=== PATIENT | female | born 1965 | race Caucasian/White ===

== ENCOUNTER 2016-05-18 14:30 | Emergency (ER) | payer BC ==
[~2016-05-18] VITALS: Ht 160 cm; Wt 75.0 kg
[2016-05-18 14:31] VITALS: BP 139/83; PULSE 88; RESP 18; TEMP 98.1; O2SAT 100
[2016-05-18] MEDS ORDERED: SODIUM CHLOR 0.9% 1000 ML INJ 1,000 ML IV SCH (15:15)
[2016-05-18] MEDS ORDERED: MORPHINE SULFATE 4 MG/ML INJ IV PUSH ONE (15:15)
[2016-05-18] MEDS ORDERED: ONDANSETRON HCL 4 MG/2 ML VIAL IVP ONE (15:15)
[2016-05-18] MEDS ORDERED: SODIUM CHLORIDE 0.9% FLUSH 10 ML FLUSH IV FLUSH PRN (15:15)
[2016-05-18] MEDS ORDERED: ZOLO50TA PO (15:25)
[2016-05-18] MEDS ORDERED: LORA-392 PO (15:25)
[2016-05-18] MEDS ORDERED: AMLO5TAB2 PO (15:25)
[2016-05-18] MEDS ORDERED: SERO100T PO (15:25)
--- NOTE | 2016-05-18 15:50 | PD ---
HPI . Abdominal pain Chief Complaint: Abdominal Pain Time Seen by Provider: 15:11 Travel History International Travel<30 days: No Contact w/Intl Traveler<30days: No Traveled to known affect area: No History of Present Illness HPI Patient presents with diffuse abdominal pain which started yesterday. She reports 4 episodes of emesis. She denies diarrhea. She denies fever. She denies urinary tract symptoms. She states that she has a history of pancreatitis and that this feels similar. She states that the etiology of her pancreatitis is alcohol. 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 Pain is described as severe. It is colicky in nature. She reports no exacerbating or relieving factors. PFSH Past Medical History Cerebrovascular Accident: Yes Tetanus Vaccination: < 5 Years Influenza Vaccination: Yes ?: Not Past Surgical History Hysterectomy: Yes Social History Alcohol Use: No (reports "I quit 6 years ago.") Tobacco Use: No Substance Use: No Allergies-Medications (Allergen,Severity, Reaction): Coded Allergies: Cipro (Verified Allergy, Intermediate, RASH, 05/18/16) Ultram (Verified Allergy, Intermediate, RASH, 05/18/16) Reported Meds & Prescriptions Reported Meds & Active Scripts Active Reported Amlodipine (Amlodipine Besylate) 5 Mg Tab 5 Mg PO DAILY Seroquel (Quetiapine Fumarate) 100 Mg Tab 100 Mg PO DAILY Ativan (Lorazepam) 0.5 Mg Tab 0.5 Mg PO DAILY PRN Zoloft (Sertraline HCl) 50 Mg Tab 50 Mg PO DAILY Review of Systems Except as stated in HPI: all other systems reviewed are Neg General / Constitutional: No: Fever, Chills Gastrointestinal: Positive: Nausea, Vomiting, Abdominal Pain, No: Diarrhea Genitourinary: No: Urgency, Frequency, Dysuria Physical Exam Narrative GENERAL: Awake and alert and in no acute distress. SKIN: Warm and dry. HEAD: Atraumatic. Normocephalic. EYES: Pupils equal and round. Sclera are anicteric. ENT: No nasal bleeding or discharge. Mucous membranes pink and moist. Very poor dental hygiene. NECK: Trachea midline. Neck is supple. CARDIOVASCULAR: Regular rate and rhythm. Heart sounds are normal. RESPIRATORY: No accessory muscle use. Lungs are clear with good air movement throughout. GASTROINTESTINAL: Abdomen soft. Upper abdominal tenderness with no guarding or rebound. Normal bowel sounds. Nondistended. MUSCULOSKELETAL: No obvious deformities. No edema. NEUROLOGICAL: Awake and alert. No obvious cranial nerve deficits. Motor grossly within normal limits. Normal speech. PSYCHIATRIC: Appropriate mood and affect; insight and judgment normal. Data Data Last Documented VS Vital Signs Date Time Temp Pulse Resp B/P Pulse Ox O2 Delivery O2 Flow Rate FiO2 05/18/16 14:31 98.1 88 18 139/83 100 Room Air Orders Complete Blood Count With Diff (05/18/16 15:15) Comprehensive Metabolic Panel (05/18/16 15:15) Lipase (05/18/16 15:15) Urinalysis - C+S If Indicated (05/18/16 15:15) Iv Access Insert/Monitor (05/18/16 15:15) Morphine Inj (Morphine Inj) (05/18/16 15:15) Ondansetron Inj (Zofran Inj) (05/18/16 15:15) Sodium Chlor 0.9% 1000 Ml Inj (Ns 1000 M (05/18/16 15:15) Sodium Chloride 0.9% Flush (Ns Flush) (05/18/16 15:15) Labs Laboratory Tests Test 05/18/16 16:00 White Blood Count 6.5 TH/MM3 Red Blood Count 4.20 MIL/MM3 Hemoglobin 14.1 GM/DL Hematocrit 39.6 % Mean Corpuscular Volume 94.3 FL Mean Corpuscular Hemoglobin 33.5 PG Mean Corpuscular Hemoglobin 35.6 % Concent Red Cell Distribution Width 14.4 % Platelet Count 217 TH/MM3 Mean Platelet Volume 7.7 FL Neutrophils (%) (Auto) 71.1 % Lymphocytes (%) (Auto) 21.1 % Monocytes (%) (Auto) 6.2 % Eosinophils (%) (Auto) 1.1 % Basophils (%) (Auto) 0.5 % Neutrophils # (Auto) 4.6 TH/MM3 Lymphocytes # (Auto) 1.4 TH/MM3 Monocytes # (Auto) 0.4 TH/MM3 Eosinophils # (Auto) 0.1 TH/MM3 Basophils # (Auto) 0.0 TH/MM3 CBC Comment DIFF FINAL Differential Comment Urine Color YELLOW Urine Turbidity CLEAR Urine pH 6.0 Urine Specific [place] 1.008 Urine Protein NEG mg/dL Urine Glucose (UA) NEG mg/dL Urine Ketones NEG mg/dL Urine Occult Blood TRACE Urine Nitrite NEG Urine Bilirubin NEG Urine Urobilinogen LESS THAN 2.0 MG/DL Urine Leukocyte Esterase NEG Urine RBC 2 /hpf Urine WBC 1 /hpf Urine Squamous Epithelial 4 /hpf Cells Urine Bacteria RARE /hpf Urine Mucus FEW /lpf Microscopic Urinalysis Comment CULT NOT INDICATED Sodium Level 141 MEQ/L Potassium Level 4.2 MEQ/L Chloride Level 104 MEQ/L Carbon Dioxide Level 30.5 MEQ/L Anion Gap 7 MEQ/L Blood Urea Nitrogen 9 MG/DL Creatinine 0.86 MG/DL Estimat Glomerular Filtration 70 ML/MIN Rate Random Glucose 85 MG/DL Calcium Level 9.3 MG/DL Total Bilirubin 0.3 MG/DL Aspartate Amino Transf 29 U/L (AST/SGOT) Alanine Aminotransferase 42 U/L (ALT/SGPT) Alkaline Phosphatase 107 U/L Total Protein 7.7 GM/DL Albumin 4.2 GM/DL Lipase 234 U/L MDM Medical Decision Making Medical Screen Exam Complete: Yes Emergency Medical Condition: Yes Medical Record Reviewed: Yes (patient has no old records in our system. I have queried [facility]. She is receiving multiple narcotics from multiple providers mainly in [place] but also as far away as [place].) Differential Diagnosis Differential diagnosis of abdominal pain includes but is not limited to gastritis, pancreatitis, hepatitis, gastroenteritis, gallbladder disease, constipation, urinary retention, UTI, peptic ulcer disease, diverticulitis or appendicitis Narrative Course Patient presents complaining with upper abdominal pain associated with nausea and vomiting. She reports that morphine works well for her but that she does "not know what we do here." This is what prompted me to queried [facility]. I have ordered IV fluids, IV morphine and Zofran. I have ordered routine labs. She has a soft abdomen so no radiographic studies have been ordered. CBC & BMP Diagram 05/18/16 16:00 LFTs and lipase are normal. UA is unremarkable. Patient continues to request pain medication. Diagnosis Primary Impression: Abdominal pain Qualified Code: R10.84 - Generalized abdominal pain Patient Instructions: Abdominal Pain (ED), General Instructions, Narcotic given in the ED Scripts Ondansetron (Zofran)4 Mg Tab4 Mg PO Q6HR PRN (NAUSEA OR VOMITING) #10 TAB Ref 0 Prov:Brenna Frost MD 05/18/16 Disposition: 01 DISCHARGE HOME Condition: Stable Brenna Frost MD May 18, 2016 15:50
[2016-05-18 16:29] LABS: AUTOMATED NEUTROPHIL # 4.6 TH/MM3 (1.8-7.7); BASOPHIL % 0.5 % (0.0-2.0); EOSINOPHIL # 0.1 TH/MM3 (0-0.4); EOSINOPHIL % 1.1 % (0.0-4.0); HEMATOCRIT 39.6 % (35.0-46.0); HEMO FLAGS DIFF FINAL; LYMPH % 21.1 % (9.0-44.0); LYMPHOCYTE # 1.4 TH/MM3 (1.0-4.8); MEAN CELL VOLUME 94.3 FL (80.0-100.0); MEAN CORPUSCULAR HEMOGLOBIN 33.5 PG (27.0-34.0); MEAN CORPUSCULAR HGB CONC 35.6 % (32.0-36.0); MONO % 6.2 % (0.0-8.0); NEUT % 71.1 % (16.0-70.0); PLATELET COUNT 217 TH/MM3 (150-450); RED CELL DISTRIBUTION WIDTH 14.4 % (11.6-17.2); WHITE BLOOD COUNT 6.5 TH/MM3 (4.0-11.0)
[2016-05-18 16:43] LABS: BACTERIA, URINE RARE /hpf; BLOOD, URINE TRACE (NEG); COMMENT (UR) CULT NOT INDICATED; CULTURE IF INDICATED CULT NOT INDICATED; GLUCOSE,URINE NEG (NEG); KETONE, URINE NEG (NEG); MUCUS URINE FEW /lpf (OCC); NITRITE,URINE NEG (NEG); SQUAMOUS EPITHELIAL CELL URINE 4 /hpf (0-5); URINE COLOR YELLOW (YELLW/STRAW)
[2016-05-18 17:02] LABS: ANION GAP 7 MEQ/L (5-15); AST (GOT) 29 U/L (15-37); BICARBONATE 30.5 MEQ/L (21.0-32.0); BLOOD UREA NITROGEN 9 MG/DL (7-18); CHLORIDE 104 MEQ/L (98-107); GLOMERULAR FILTRATION RATE 70 ML/MIN (>89); POTASSIUM 4.2 MEQ/L (3.5-5.1); SODIUM (NA) 141 MEQ/L (136-145)
[2016-05-18 17:05] LABS: ALKALINE PHOSPHATASE 107 U/L (45-117); ALT (GPT) 42 U/L (10-53); TOTAL BILIRUBIN ADULT 0.3 MG/DL (0.2-1.0)
[2016-05-18] MEDS ORDERED: ZOFR4TAB PO (17:21)
[2016-05-18 17:28] VITALS: BP 150/83; PULSE 68; O2SAT 96
== END 2016-05-18 17:45 | disposition home or self-care (01) ==
LOC: NEPD 14:30
DX: R10.84 Generalized abdominal pain (principal)
CPT/HCPCS: 80053; 81001; 83690; 85025; 96361; 96374; 96375; 99284; J2270; J2405; J7030

== ENCOUNTER 2016-05-28 14:26 | Emergency (ER) | payer BC ==
[~2016-05-28] VITALS: Ht 162.6 cm; Wt 76.0 kg
[~2016-05-28 14:26] MED LIST: AMLO5TAB2 PO; LORA-392 PO; SERO100T PO; ZOFR4TAB PO; ZOLO50TA PO
[2016-05-28 14:31] VITALS: BP 102/66; PULSE 88; RESP 16; TEMP 98.8; O2SAT 94
--- NOTE | 2016-05-28 14:56 | PD ---
Physical Exam Time Seen by Provider: 14:51 Narrative 50 year old presents to ED for evaluation of pelvic pain, nausea, and vomiting worsening over the last 2-3 days. No vaginal bleeding or discharge. History of total hysterectomy. Pt is currently on bactrim and pyridium and lortab for UTI diagnosed one week ago. States she had a CT last week and was told she has fluid around her bladder. Data Data Last Documented VS Vital Signs Date Time Temp Pulse Resp B/P Pulse Ox O2 Delivery O2 Flow Rate FiO2 05/28/16 14:31 98.8 88 16 102/66 94 MDM Medical Record Reviewed: Yes Supervised Visit with RADHA: No Narrative Course 50 year old female presents to the ED for evaluation of pelvic pain, nausea, and vomiting; currently being treated with bactrim for UTI. Appears uncomfortable but without distress. VSS Condition: Stable Kina Simon May 28, 2016 14:56
[2016-05-28] MEDS ORDERED: PHEN0.4T PO (15:24)
[2016-05-28] MEDS ORDERED: HYDR-3516 PO (15:24)
[2016-05-28] MEDS ORDERED: BACT400T PO (15:24)
--- NOTE | 2016-05-28 16:12 | PD ---
HPI Chief Complaint: Abdominal Pain Time Seen by Provider: 15:54 Travel History International Travel<30 days: No Contact w/Intl Traveler<30days: No Traveled to known affect area: No History of Present Illness HPI This is a 50-year-old female who presents to the emergency department with lower abdominal pain, constant, moderate severity, associated with dysuria, frequency and urgency. She denies any fevers or chills. She has had some nausea. She was diagnosed with a urinary tract infection at an outside hospital and was started on Bactrim. She's been taking about her symptoms have been worsening. She is describing severe pain. She has been taking Lortab but only occasionally. She says that prior to her prescription for her UTI she care member the last time she was on an opiate pain medication. PFSH Past Medical History Hx Anticoagulant Therapy: Yes (ASA) Bipolar Disorder: Yes Anxiety: Yes Depression: Yes Cardiovascular Problems: Yes (HTN) High Cholesterol: Yes Cerebrovascular Accident: Yes (2016) Diminished Hearing: No Hypertension: Yes Pancreatitis: Yes Tetanus Vaccination: < 5 Years Influenza Vaccination: Yes ?: Not Tubal Ligation: Yes Past Surgical History Abdominal Surgery: Yes (appy) Appendectomy: Yes Gynecologic Surgery: Yes (total hysterectomy) Hysterectomy: Yes Other Surgery: Yes (2 herniated discs removed in neck ) Social History Alcohol Use: No (reports "I quit 6 years ago.") Tobacco Use: Yes (1/2 ppd) Substance Use: No Allergies-Medications (Allergen,Severity, Reaction): Coded Allergies: Cipro (Verified Allergy, Intermediate, RASH, 05/28/16) Ultram (Verified Allergy, Intermediate, RASH, 05/28/16) Reported Meds & Prescriptions Reported Meds & Active Scripts Active Zofran (Ondansetron HCl) 4 Mg Tab 4 Mg PO Q6HR PRN Reported Hydrocodone-Acetaminophen 5-325 mg Tab 1 Tab PO Q6H PRN Bactrim (Sulfamethoxazole-Trimethoprim) 400-80 Mg Tab 1 Tab PO BID Pyridium (Phenazopyridine HCl) 100 Mg Tab 100 Mg PO Q8H PRN Amlodipine (Amlodipine Besylate) 5 Mg Tab 5 Mg PO DAILY Seroquel (Quetiapine Fumarate) 100 Mg Tab 100 Mg PO DAILY Ativan (Lorazepam) 0.5 Mg Tab 0.5 Mg PO DAILY PRN Zoloft (Sertraline HCl) 50 Mg Tab 50 Mg PO DAILY Review of Systems Except as stated in HPI: all other systems reviewed are Neg Physical Exam Narrative GENERAL:Well appearing, no acute distress SKIN: Focused skin assessment warm and dry. HEAD: Atraumatic. Normocephalic. EYES: Pupils equal and round. No injection or drainage. ENT: Moist mucous membranes NECK: Trachea midline. CARDIOVASCULAR: Regular rate and rhythm. No murmur appreciated. RESPIRATORY: Clear to auscultation. Breath sounds equal bilaterally. GASTROINTESTINAL: Abdomen soft, tender to palpation in the suprapubic region with no rebound or guarding. MUSCULOSKELETAL: No obvious deformities. NEUROLOGICAL: Awake and alert. No obvious cranial nerve deficits. Moving all extremities. PSYCHIATRIC: Appropriate mood and affect; insight and judgment normal. Data Data Last Documented VS Vital Signs Date Time Temp Pulse Resp B/P Pulse Ox O2 Delivery O2 Flow Rate FiO2 05/28/16 14:31 98.8 88 16 102/66 94 Orders Complete Blood Count With Diff (05/28/16 16:05) Basic Metabolic Panel (Bmp) (05/28/16 16:05) Urinalysis - C+S If Indicated (05/28/16 16:05) ^ Insert Iv (05/28/16 16:05) Ketorolac Inj (Toradol Inj) (05/28/16 16:15) Ondansetron Inj (Zofran Inj) (05/28/16 16:15) Sodium Chlor 0.9% 1000 Ml Inj (Ns 1000 M (05/28/16 16:15) Ed Urine Pregnancytest Poc (05/28/16 16:05) Labs Laboratory Tests Test 05/28/16 16:18 White Blood Count 5.2 TH/MM3 Red Blood Count 4.09 MIL/MM3 Hemoglobin 13.3 GM/DL Hematocrit 38.7 % Mean Corpuscular Volume 94.6 FL Mean Corpuscular Hemoglobin 32.5 PG Mean Corpuscular Hemoglobin 34.4 % Concent Red Cell Distribution Width 14.6 % Platelet Count 184 TH/MM3 Mean Platelet Volume 8.3 FL Neutrophils (%) (Auto) 66.6 % Lymphocytes (%) (Auto) 25.6 % Monocytes (%) (Auto) 5.9 % Eosinophils (%) (Auto) 1.4 % Basophils (%) (Auto) 0.5 % Neutrophils # (Auto) 3.5 TH/MM3 Lymphocytes # (Auto) 1.3 TH/MM3 Monocytes # (Auto) 0.3 TH/MM3 Eosinophils # (Auto) 0.1 TH/MM3 Basophils # (Auto) 0.0 TH/MM3 CBC Comment DIFF FINAL Differential Comment Urine Color ORANGE Urine Turbidity CLEAR Urine pH 5.5 Urine Specific [place] 1.018 Urine Protein TRACE mg/dL Urine Glucose (UA) NEG mg/dL Urine Ketones NEG mg/dL Urine Occult Blood TRACE Urine Nitrite POS Urine Bilirubin NEG Urine Urobilinogen 2.0 MG/DL Urine Leukocyte Esterase NEG Urine RBC 3 /hpf Urine WBC 1 /hpf Urine Squamous Epithelial 2 /hpf Cells Urine Mucus FEW /lpf Microscopic Urinalysis Comment CULT NOT INDICATED MDM Medical Decision Making Medical Screen Exam Complete: Yes Emergency Medical Condition: Yes Interpretation(s) Afebrile, no tachycardia, normotensive No leukocytosis Urinalysis: Nitrite positive Differential Diagnosis Urinary tract infection, pancreatitis, appendicitis, colitis drug-seeking behavior, chronic abdominal pain Narrative Course This is a 50-year-old female who presents to the emergency department with lower abdominal pain that she says is been going on for 1 week. She was seen at an outside hospital where she had a CT scan earlier this week which was reassuring and was treated for urinary tract infection. She's been taking Bactrim that she feels like her symptoms are worse. Labs were obtained which were reassuring and vital signs are reassuring. I don't think further CT imaging is warranted. I did offer it to her given I have no explanation for her pain and she declined given she's had recent imaging. I have a high suspicion for drug-seeking behavior in this patient. She has stated allergy to Ultram. She has filled 32 prescriptions from 21 different providers in the past year. I doubt this reflects a surgical emergency. Patient will be discharged home. Diagnosis Primary Impression: Chronic abdominal pain Patient Instructions: General Instructions Additional Instructions: If you develop severe or worsening abdominal pain, fever>100.4, persistent vomiting or inability to eat or drink return to the emergency department immediately. Follow up with your primary care physician in 1-2 days for a check-up. Med/Other Pt SpecificInfo: No Change to Meds Disposition: 01 DISCHARGE HOME Condition: Stable Layla Vasques MD May 28, 2016 16:12
[2016-05-28] MEDS ORDERED: ONDANSETRON HCL 4 MG/2 ML VIAL IV PUSH ONE (16:15)
[2016-05-28] MEDS ORDERED: KETOROLAC TROMETHAMINE 30 MG/ML (IVP) VIAL IV PUSH ONE (16:15)
[2016-05-28] MEDS ORDERED: SODIUM CHLOR 0.9% 1000 ML INJ 1,000 ML IV ONE (16:15)
[2016-05-28 16:50] LABS: BLOOD, URINE TRACE (NEG); GLUCOSE,URINE NEG (NEG); KETONE, URINE NEG (NEG); MUCUS URINE FEW /lpf (OCC); PH, URINE 5.5 (5.0-8.5); SQUAMOUS EPITHELIAL CELL URINE 2 /hpf (0-5)
[2016-05-28 16:51] LABS: NITRITE,URINE POS (NEG)
[2016-05-28 16:53] LABS: COMMENT (UR) CULT NOT INDICATED; CULTURE IF INDICATED CULT NOT INDICATED; URINE COLOR ORANGE (YELLW/STRAW)
[2016-05-28 16:55] LABS: AUTOMATED NEUTROPHIL # 3.5 TH/MM3 (1.8-7.7); BASOPHIL % 0.5 % (0.0-2.0); EOSINOPHIL # 0.1 TH/MM3 (0-0.4); EOSINOPHIL % 1.4 % (0.0-4.0); HEMATOCRIT 38.7 % (35.0-46.0); HEMO FLAGS DIFF FINAL; LYMPH % 25.6 % (9.0-44.0); LYMPHOCYTE # 1.3 TH/MM3 (1.0-4.8); MEAN CELL VOLUME 94.6 FL (80.0-100.0); MEAN CORPUSCULAR HEMOGLOBIN 32.5 PG (27.0-34.0); MEAN CORPUSCULAR HGB CONC 34.4 % (32.0-36.0); MONO % 5.9 % (0.0-8.0); NEUT % 66.6 % (16.0-70.0); PLATELET COUNT 184 TH/MM3 (150-450); RED BLOOD COUNT 4.09 MIL/MM3 (4.00-5.30); RED CELL DISTRIBUTION WIDTH 14.6 % (11.6-17.2); WHITE BLOOD COUNT 5.2 TH/MM3 (4.0-11.0)
[2016-05-28 17:09] LABS: BICARBONATE 23.4 MEQ/L (21.0-32.0)
[2016-05-28 17:21] VITALS: BP 140/82
[2016-05-28 17:22] VITALS: RESP 19
== END 2016-05-28 17:33 | disposition home or self-care (01) ==
LOC: NEPD 14:26
DX: G89.29 Other chronic pain (principal)
CPT/HCPCS: 80048; 81001; 84703; 85025; 96361; 96374; 96375; 99284; J1885; J2405; J7030

== ENCOUNTER 2016-06-17 17:13 | Emergency (ER) | payer BC ==
[~2016-06-17] VITALS: Ht 160 cm; Wt 75.0 kg
[~2016-06-17 17:13] MED LIST changes: +BACT400T PO; +HYDR-3516 PO; +PHEN0.4T PO
[2016-06-17 17:15] VITALS: BP 111/65; PULSE 80; RESP 14; TEMP 98.1; O2SAT 99
--- NOTE | 2016-06-17 17:19 | PD ---
Physical Exam Time Seen by Provider: 17:16 Narrative 50yo F w/ c/o depression and thoughts of harming herself. Report nausea and vomiting. Reports lower abdomen pain and foul odor to urine. Denies fever. VS reviewed. Patient seen in triage. Awaiting bed placement. Data Data Last Documented VS Vital Signs Date Time Temp Pulse Resp B/P Pulse Ox O2 Delivery O2 Flow Rate FiO2 06/17/16 17:15 98.1 80 14 111/65 99 MDM Supervised Visit with RADHA: Lety Sanchez June 17, 2016 17:19
[2016-06-17] MEDS ORDERED: SODIUM CHLOR 0.9% 1000 ML INJ 1,000 ML IV SCH (17:28)
[2016-06-17] MEDS ORDERED: SODIUM CHLORIDE 0.9% FLUSH 10 ML FLUSH IV FLUSH PRN (17:30)
[2016-06-17] MEDS ORDERED: ACETAMINOPHEN 325 MG TAB PO ONE (17:30)
[2016-06-17] MEDS ORDERED: ONDANSETRON HCL 4 MG/2 ML VIAL IVP ONE (17:30)
[2016-06-17] MEDS ORDERED: OXYC1TAB63 PO (17:35)
[2016-06-17] MEDS ORDERED: CYCL1TAB29 PO (17:35)
[2016-06-17] MEDS ORDERED: LORA1TAB12 PO (17:35)
[2016-06-17] MEDS ORDERED: LISI40TA PO (17:35)
[2016-06-17] MEDS ORDERED: ALPR0.5T3 PO (17:35)
--- NOTE | 2016-06-17 17:38 | PD ---
HPI Chief Complaint: Complaint Time Seen by Provider: 17:34 Travel History International Travel<30 days: No Contact w/Intl Traveler<30days: No Traveled to known affect area: No History of Present Illness HPI 50-year-old female presents to the emergency department for evaluation of depression as well as lower abdominal pain. Patient states both of these symptoms started this morning. She reports a history of depression and anxiety. She states that she has not to hurt herself, has no plan. She also states she has lower abdominal pain that started this morning. She reports history of hysterectomy with tubes and ovaries removed as well as appendectomy. She does state she has an odor to her urine. She denies any abnormal vaginal discharge or risk of STDs. Patient has history of hypertension, depression, anxiety. Patient has been seen in the emergency department twice for abdominal pain as well. She is suspected drug-seeking behavior. Patient is requesting pain medication stating that she took Toradol just prior to arrival. However, this is not in her prescribed medications that she brought with her to the emergency department. PFSH Past Medical History Hx Anticoagulant Therapy: Yes (ASA) Bipolar Disorder: Yes Anxiety: Yes Depression: Yes Cardiovascular Problems: Yes (HTN) High Cholesterol: Yes Cerebrovascular Accident: Yes (2016) Diminished Hearing: No Hypertension: Yes Pancreatitis: Yes ?: Not Tubal Ligation: Yes Past Surgical History Abdominal Surgery: Yes (appy) Appendectomy: Yes Gynecologic Surgery: Yes (total hysterectomy) Hysterectomy: Yes (TOTAL) Other Surgery: Yes (2 herniated discs removed in neck ) Social History Alcohol Use: No (reports "I quit 6 years ago.") Tobacco Use: Yes (1/2 ppd) Substance Use: No Allergies-Medications (Allergen,Severity, Reaction): Coded Allergies: Cipro (Verified Allergy, Intermediate, RASH, 05/28/16) Ultram (Verified Allergy, Intermediate, RASH, 05/28/16) Reported Meds & Prescriptions Reported Meds & Active Scripts Active Zofran (Ondansetron HCl) 4 Mg Tab 4 Mg PO Q6HR PRN Reported Alprazolam 0.5 Mg Tab 0.5 Mg PO TID PRN Flexeril (Cyclobenzaprine HCl) 10 Mg Tab 10 Mg PO TID Lisinopril 40 Mg Tab 40 Mg PO DAILY Lorazepam 1 Mg Tab 1 Mg PO DAILY PRN Oxycodone-Acetaminophen 5-325 mg Tab 1 Tab PO Q6H PRN Bactrim (Sulfamethoxazole-Trimethoprim) 400-80 Mg Tab 1 Tab PO BID Pyridium (Phenazopyridine HCl) 100 Mg Tab 100 Mg PO Q8H PRN Amlodipine (Amlodipine Besylate) 5 Mg Tab 5 Mg PO DAILY Seroquel (Quetiapine Fumarate) 100 Mg Tab 100 Mg PO DAILY Zoloft (Sertraline HCl) 50 Mg Tab 50 Mg PO DAILY Review of Systems Except as stated in HPI: all other systems reviewed are Neg Physical Exam Narrative GENERAL: Well-nourished, well-developed female patient, ambulatory. Afebrile. SKIN: Focused skin assessment warm/dry. HEAD: Normocephalic. Atraumatic. EYES: No scleral icterus. No injection or drainage. NECK: Supple, trachea midline. No JVD or lymphadenopathy. CARDIOVASCULAR: Regular rate and rhythm without murmurs, gallops, or rubs. RESPIRATORY: Breath sounds equal bilaterally. No accessory muscle use. Lungs sounds are clear to auscultation. GASTROINTESTINAL: Abdomen is soft and nondistended. Patient has pelvic/ suprapubic tenderness to palpation. MUSCULOSKELETAL: No cyanosis, or edema. BACK: Nontender without obvious deformity. No CVA tenderness. Data Data Last Documented VS Vital Signs Date Time Temp Pulse Resp B/P Pulse Ox O2 Delivery O2 Flow Rate FiO2 06/17/16 18:27 97 Room Air 06/17/16 17:29 18 06/17/16 17:15 98.1 80 111/65 Orders Complete Blood Count With Diff (06/17/16 17:28) Comprehensive Metabolic Panel (06/17/16 17:28) Urinalysis - C+S If Indicated (06/17/16 17:28) Iv Access Insert/Monitor (06/17/16 17:28) Ecg Monitoring (06/17/16 17:28) Oximetry (06/17/16 17:28) Ondansetron Inj (Zofran Inj) (06/17/16 17:30) Sodium Chlor 0.9% 1000 Ml Inj (Ns 1000 M (06/17/16 17:28) Sodium Chloride 0.9% Flush (Ns Flush) (06/17/16 17:30) Acetaminophen (Tylenol) (06/17/16 17:30) Lipase (06/17/16 17:28) Drug Screen, Random Urine (06/17/16 17:32) Psych Screen (06/17/16 17:33) Creatine Kinase (Cpk) (06/17/16 18:27) Troponin I (06/17/16 18:27) Electrocardiogram (06/17/16 ) Chest, Single Ap (06/17/16 ) Hydroxyzine Pamoate (Vistaril) (06/17/16 19:00) Labs Laboratory Tests Test 06/17/16 06/17/16 17:35 17:47 Urine Color YELLOW Urine Turbidity HAZY Urine pH 5.5 Urine Specific [place] 1.016 Urine Protein NEG mg/dL Urine Glucose (UA) NEG mg/dL Urine Ketones NEG mg/dL Urine Occult Blood SMALL Urine Nitrite NEG Urine Bilirubin NEG Urine Urobilinogen LESS THAN 2.0 MG/DL Urine Leukocyte Esterase NEG Urine RBC 5 /hpf Urine WBC 2 /hpf Urine Squamous Epithelial 6 /hpf Cells Urine Bacteria RARE /hpf Urine Mucus FEW /lpf Microscopic Urinalysis Comment CULT NOT INDICATED Urine Opiates Screen NEG Urine Barbiturates Screen NEG Urine Amphetamines Screen NEG Urine Benzodiazepines Screen POS Urine Cocaine Screen NEG Urine Cannabinoids Screen NEG White Blood Count 5.3 TH/MM3 Red Blood Count 4.08 MIL/MM3 Hemoglobin 13.2 GM/DL Hematocrit 38.8 % Mean Corpuscular Volume 95.2 FL Mean Corpuscular Hemoglobin 32.4 PG Mean Corpuscular Hemoglobin 34.1 % Concent Red Cell Distribution Width 14.7 % Platelet Count 185 TH/MM3 Mean Platelet Volume 8.0 FL Neutrophils (%) (Auto) 59.9 % Lymphocytes (%) (Auto) 29.9 % Monocytes (%) (Auto) 7.7 % Eosinophils (%) (Auto) 1.7 % Basophils (%) (Auto) 0.8 % Neutrophils # (Auto) 3.2 TH/MM3 Lymphocytes # (Auto) 1.6 TH/MM3 Monocytes # (Auto) 0.4 TH/MM3 Eosinophils # (Auto) 0.1 TH/MM3 Basophils # (Auto) 0.0 TH/MM3 CBC Comment DIFF FINAL Differential Comment Sodium Level 142 MEQ/L Potassium Level 4.0 MEQ/L Chloride Level 107 MEQ/L Carbon Dioxide Level 26.0 MEQ/L Anion Gap 9 MEQ/L Blood Urea Nitrogen 10 MG/DL Creatinine 0.87 MG/DL Estimat Glomerular Filtration 69 ML/MIN Rate Random Glucose 92 MG/DL Calcium Level 9.0 MG/DL Total Bilirubin 0.1 MG/DL Aspartate Amino Transf 37 U/L (AST/SGOT) Alanine Aminotransferase 46 U/L (ALT/SGPT) Alkaline Phosphatase 98 U/L Total Creatine Kinase 51 U/L Troponin I LESS THAN 0.02 NG/ML Total Protein 7.1 GM/DL Albumin 3.9 GM/DL Lipase 87 U/L [facility] Medical Decision Making Medical Screen Exam Complete: Yes Emergency Medical Condition: Yes Medical Record Reviewed: Yes Interpretation(s) chest x-ray - CONCLUSION: No acute disease. Differential Diagnosis Chronic abdominal pain versus urinary tract infection versus diverticulitis Narrative Course 50-year-old female presents to the emergency department for evaluation of lower abdominal pain that started this morning as well as depression. Patient has had drug-seeking behavior in the past. IV access established. CBC, CMP, lipase , UA, urine drug screen are ordered and pending. CT abdomen/pelvis with IV contrast is ordered and pending. CBC is unremarkable. CMP shows no acute abnormality. Lipase is 87. UA is negative for acute infection. UDS .is positive for benzodiazepines 1822 - patient is now also complaining of midsternal chest pain that is sharp in nature. She states she states it started at this time. She states she's had this pain before, but not as bad. Patient is requesting something to "calm me down". However, when patient was first the room, she was observed taking her own lorazepam at that time. I added on his CK and troponin. Chest x-ray shows normal sinus rhythm, heart rate 69, no acute ST changes. Chest x-ray is also ordered and pending. CK is 51. Troponin is less than 0.02. Chest x-ray shows no acute disease. Patient continues to say she has thoughts of hurting her self and states that she is suicidal. Her fiance at bedside states that he is concerned about her depression and states that she is suicidal. Patient is angry, continually requesting narcotics. Patient states that she will tell psychiatrist that she is not suicidal in order to leave. Dr. Moreno, who is also at bedside, agrees with placing her under a BA. The patient declines CT. Dr. Moreno is aware of this and agrees with cancelling CT scan. Patient is medically cleared for psychiatric screening and disposition. Diagnosis Primary Impression: Chronic abdominal pain Additional Impression: Depression Qualified Code: F32.9 - Depression, unspecified depression type Additional Instructions: Patient is medically cleared for psychiatric screening and disposition. Condition: Stable Kiley Fonseca June 17, 2016 17:38
[2016-06-17 17:59] LABS: AUTOMATED NEUTROPHIL # 3.2 TH/MM3 (1.8-7.7); BASOPHIL % 0.8 % (0.0-2.0); EOSINOPHIL # 0.1 TH/MM3 (0-0.4); EOSINOPHIL % 1.7 % (0.0-4.0); HEMATOCRIT 38.8 % (35.0-46.0); HEMO FLAGS DIFF FINAL; LYMPH % 29.9 % (9.0-44.0); LYMPHOCYTE # 1.6 TH/MM3 (1.0-4.8); MEAN CELL VOLUME 95.2 FL (80.0-100.0); MEAN CORPUSCULAR HEMOGLOBIN 32.4 PG (27.0-34.0); MEAN CORPUSCULAR HGB CONC 34.1 % (32.0-36.0); MONO % 7.7 % (0.0-8.0); NEUT % 59.9 % (16.0-70.0); PLATELET COUNT 185 TH/MM3 (150-450); RED BLOOD COUNT 4.08 MIL/MM3 (4.00-5.30); RED CELL DISTRIBUTION WIDTH 14.7 % (11.6-17.2); WHITE BLOOD COUNT 5.3 TH/MM3 (4.0-11.0)
[2016-06-17 18:07] LABS: AMPHETAMINE, URINE NEG (NEG); BARBITURATES, URINE NEG (NEG); COCAINE, URINE NEG (NEG)
[2016-06-17 18:18] LABS: BACTERIA, URINE RARE /hpf; BLOOD, URINE SMALL (NEG); COMMENT (UR) CULT NOT INDICATED; CULTURE IF INDICATED CULT NOT INDICATED; GLUCOSE,URINE NEG (NEG); KETONE, URINE NEG (NEG); MUCUS URINE FEW /lpf (OCC); NITRITE,URINE NEG (NEG); PH, URINE 5.5 (5.0-8.5); SQUAMOUS EPITHELIAL CELL URINE 6 /hpf (0-5); URINE COLOR YELLOW (YELLW/STRAW)
[2016-06-17 18:20] LABS: ALT (GPT) 46 U/L (10-53); ANION GAP 9 MEQ/L (5-15); AST (GOT) 37 U/L (15-37); BLOOD UREA NITROGEN 10 MG/DL (7-18); CHLORIDE 107 MEQ/L (98-107); GLOMERULAR FILTRATION RATE 69 ML/MIN (>89); SODIUM (NA) 142 MEQ/L (136-145)
[2016-06-17 18:22] LABS: ALKALINE PHOSPHATASE 98 U/L (45-117); TOTAL BILIRUBIN ADULT 0.1 MG/DL (0.2-1.0)
[2016-06-17 18:27] VITALS: O2SAT 97
[2016-06-17 18:55] LABS: CREATINE KINASE 51 U/L (26-192)
--- NOTE | 2016-06-17 19:30 | RADRPT ---
EXAM DATE/TIME: 06/17/2016 19:11 [facility] COMPARISON: No previous studies available for comparison. INDICATIONS : Chest pain. MEDICAL HISTORY : None. SURGICAL HISTORY : None. ENCOUNTER: Initial ACUITY: 1 day PAIN SCORE: 6/10 LOCATION: Left chest FINDINGS: A single view of the chest demonstrates the lungs to be symmetrically aerated without evidence of mas s, infiltrate or effusion. The cardiomediastinal contours are unremarkable. Osseous structures are intact. CONCLUSION: No acute disease. Toro Stacy MD on June 17, 2016 at 19:27 Board Certified Radiologist. This report was verified electronically.
[2016-06-17 20:45] VITALS: BP 123/64; PULSE 64; RESP 17; O2SAT 94
[2016-06-18 02:10] VITALS: BP 109/51; PULSE 79; RESP 18; O2SAT 98
[2016-06-18 06:00] VITALS: BP 118/71; PULSE 60; RESP 18; O2SAT 98
[2016-06-18 10:53] VITALS: BP 124/73; PULSE 87; RESP 18; TEMP 98.9; O2SAT 98
--- NOTE | 2016-06-18 11:17 | PD ---
History of Present Illness Chief Complaint: Complaint Time Seen by Provider: 10:45 Travel History International Travel<30 Days: No Contact w/Intl Traveler<30days: No Known affected area: No Legal Status Legal Status: [place] Act [place] Act Signed By: [facility] History of Present Illness: History of Present Illness HPI 50-year-old female with self reported history of depression and anxiety that presents to the emergency department for evaluation of depression as well as lower abdominal pain. She presented on a voluntary basis. As per ed documentation " both symptoms started this morning and she states that she has not to hurt herself, has no plan. She also states she has lower abdominal pain that started this morning. She reports history of hysterectomy with tubes and ovaries removed as well as appendectomy. She does state she has an odor to her urine. She denies any abnormal vaginal discharge or risk of STDs. Patient has history of hypertension, depression, anxiety. Patient has been seen in the emergency department twice for abdominal pain as well. She is suspected drug- seeking behavior. Patient is requesting pain medication stating that she took Toradol just prior to arrival. However, this is not in her prescribed medications that she brought with her to the emergency department." EMR is reviewed. This is her first contact with [facility] psychiatric department. Patient was monitored in J pod and presented no behavioral concerns and no suicidality. Patient is alert and oriented, calm and cooperative. Speech is clear and logical. There is no pressure. She reports she has been feeling depressed and had bad thoughts of cutting herself. She did not engage in this behavior. She has a past hx of SIB many years ago and last engaged in this behavior 12 years ago. She denies any hallucinations, no delusions and no paranoia. Her mood is described as depressed although she tells me that she has been carrying out her usual daily activities including playing games on her phone and watching television. She is sleeping well and has a good appetite. She denies any recent stressors. She only identifies having yelled at her grandson this morning when he asked her for cereal which she has been feeling guilty over. she reports that she has been medication compliant and that her psychiatric medication were adjusted 2 weeks ago. PFSH Past Medical History Hx Anticoagulant Therapy: Yes (ASA) Bipolar Disorder: Yes Anxiety: Yes Depression: Yes Cardiovascular Problems: Yes (HTN) High Cholesterol: Yes Cerebrovascular Accident: Yes (2016) Diminished Hearing: No Hypertension: Yes Pancreatitis: Yes ?: Not Tubal Ligation: Yes Past Surgical History Abdominal Surgery: Yes (appy) Appendectomy: Yes Gynecologic Surgery: Yes (total hysterectomy) Hysterectomy: Yes (TOTAL) Other Surgery: Yes (2 herniated discs removed in neck ) Psychiatric History Psychiatric History Hx Psychiatric Treatment: HX: DEPRESSION AND ANXIETY. Currently in tx w Dr. Valverde in [place]. Has appointmetn in 1 month. History of Inpatient Treatment: Yes Guns or firearms in home: No Social History female who lives with , her son, her daughter in law and her 4 year old grandson. She is unemployed and is pending disability determination. Hx Alcohol Use: No (reports "I quit 6 years ago.") Hx Tobacco Use: Yes (1/2 ppd) Hx Substance Use: Yes (Last used 6 years ago. ) Hx of Substance Use Treatment: Yes Family Psychiatric History None reported. Allergies-Medications (Allergen,Severity, Reaction): Coded Allergies: Cipro (Verified Allergy, Intermediate, RASH, 05/28/16) Ultram (Verified Allergy, Intermediate, RASH, 05/28/16) Reported Meds & Prescriptions Reported Meds & Active Scripts Active Zofran (Ondansetron HCl) 4 Mg Tab 4 Mg PO Q6HR PRN Reported Alprazolam 0.5 Mg Tab 0.5 Mg PO TID PRN Flexeril (Cyclobenzaprine HCl) 10 Mg Tab 10 Mg PO TID Lisinopril 40 Mg Tab 40 Mg PO DAILY Lorazepam 1 Mg Tab 1 Mg PO DAILY PRN Oxycodone-Acetaminophen 5-325 mg Tab 1 Tab PO Q6H PRN Amlodipine (Amlodipine Besylate) 5 Mg Tab 5 Mg PO DAILY Seroquel (Quetiapine Fumarate) 100 Mg Tab 100 Mg PO DAILY Zoloft (Sertraline HCl) 50 Mg Tab 50 Mg PO DAILY Review of Systems Except as stated in HPI: all other systems reviewed are Neg Musculoskeletal: COMPLAINS OF: Back pain Psychiatric: COMPLAINS OF: Anxiety, Depression Exam Alert: Yes [place]: Person (ox4) Mood: Calm Affect: Appropriate Speech: Clear, Logical Eye Contact: Normal Memory Intact: Comment (no impairmetn) Hallucinations: Other (Negative) Delusions: No Suicidal: Ideation (neagtive) Homicidal: Ideation (negative) Insight/Judgement Poor. Not impaired. MDM Medical Decision Making Medical Record Reviewed: Yes Assessment/Plan 50 year old female under a BA after she reported suicidal ideation to ED provider. Patient was monitored in safe environment with no suicidality. Upon evaluation this patient did not present active suicidal ideation or plan. She does not appear significantly depressed. She is currently in treatment and her medications have recently been adjusted. At this time it is determined that she does not meet BA criteria or criteria for inpatient psychiatric treatment. Patient's needs can be met in less restrictive environment. She has adequate support and has a follow up appointment scheduled with her outpatient psychiatrist. She is informed that her outpatient psychiatrist can further adjust her medication if she feels they are not working. BA lifted. Discharge home. Orders Complete Blood Count With Diff (06/17/16 17:28) Comprehensive Metabolic Panel (06/17/16 17:28) Urinalysis - C+S If Indicated (06/17/16 17:28) Iv Access Insert/Monitor (06/17/16 17:28) Ecg Monitoring (06/17/16 17:28) Oximetry (06/17/16 17:28) Ondansetron Inj (Zofran Inj) (06/17/16 17:30) Sodium Chlor 0.9% 1000 Ml Inj (Ns 1000 M (06/17/16 17:28) Sodium Chloride 0.9% Flush (Ns Flush) (06/17/16 17:30) Acetaminophen (Tylenol) (06/17/16 17:30) Lipase (06/17/16 17:28) Drug Screen, Random Urine (06/17/16 17:32) Psych Screen (06/17/16 17:33) Creatine Kinase (Cpk) (06/17/16 18:27) Troponin I (06/17/16 18:27) Electrocardiogram (06/17/16 ) Chest, Single Ap (06/17/16 ) Hydroxyzine Pamoate (Vistaril) (06/17/16 19:00) Diet Regular Basic (06/18/16 Breakfast) Results Vital Signs Date Time Temp Pulse Resp B/P Pulse Ox O2 Delivery O2 Flow Rate FiO2 06/18/16 10:53 98.9 87 18 124/73 98 Room Air 06/18/16 06:00 60 18 118/71 98 Room Air 06/18/16 02:10 79 18 109/51 98 Room Air 06/17/16 20:45 64 17 123/64 94 Room Air 06/17/16 18:27 97 Room Air 06/17/16 17:29 18 06/17/16 17:15 98.1 80 14 111/65 99 Laboratory Tests Test 06/17/16 06/17/16 17:35 17:47 Urine Color YELLOW Urine Turbidity HAZY Urine pH 5.5 Urine Specific Gary 1.016 Urine Protein NEG Urine Glucose (UA) NEG Urine Ketones NEG Urine Occult Blood SMALL Urine Nitrite NEG Urine Bilirubin NEG Urine Urobilinogen LESS THAN 2.0 Urine Leukocyte Esterase NEG Urine RBC 5 Urine WBC 2 Urine Squamous Epithelial 6 Cells Urine Bacteria RARE Urine Mucus FEW Microscopic Urinalysis Comment CULT NOT INDICATED Urine Opiates Screen NEG Urine Barbiturates Screen NEG Urine Amphetamines Screen NEG Urine Benzodiazepines Screen POS Urine Cocaine Screen NEG Urine Cannabinoids Screen NEG White Blood Count 5.3 Red Blood Count 4.08 Hemoglobin 13.2 Hematocrit 38.8 Mean Corpuscular Volume 95.2 Mean Corpuscular Hemoglobin 32.4 Mean Corpuscular Hemoglobin 34.1 Concent Red Cell Distribution Width 14.7 Platelet Count 185 Mean Platelet Volume 8.0 Neutrophils (%) (Auto) 59.9 Lymphocytes (%) (Auto) 29.9 Monocytes (%) (Auto) 7.7 Eosinophils (%) (Auto) 1.7 Basophils (%) (Auto) 0.8 Neutrophils # (Auto) 3.2 Lymphocytes # (Auto) 1.6 Monocytes # (Auto) 0.4 Eosinophils # (Auto) 0.1 Basophils # (Auto) 0.0 CBC Comment DIFF FINAL Differential Comment Sodium Level 142 Potassium Level 4.0 Chloride Level 107 Carbon Dioxide Level 26.0 Anion Gap 9 Blood Urea Nitrogen 10 Creatinine 0.87 Estimat Glomerular Filtration 69 Rate Random Glucose 92 Calcium Level 9.0 Total Bilirubin 0.1 Aspartate Amino Transf 37 (AST/SGOT) Alanine Aminotransferase 46 (ALT/SGPT) Alkaline Phosphatase 98 Total Creatine Kinase 51 Troponin I LESS THAN 0.02 Total Protein 7.1 Albumin 3.9 Lipase 87 Diagnosis Primary Impression: Depression Additional Impressions: Chronic abdominal pain anxiety disorder. Psychiatrically Cleared: Yes Additional Instructions: Patient is medically cleared for psychiatric screening and disposition. 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
--- NOTE | 2016-06-18 15:24 | EKG ---
Date Performed: 06/17/2016 Time Performed: 18:22:44 PTAGE: 50 years EKG: Sinus rhythm NORMAL ECG INTERPRETATION BASED ON A DEFAULT AGE OF 42 YEARS NO PREVIOUS TRACING DOCTOR: Satish Nicholson Interpretating Date/Time 06/18/2016 15:23:01
== END 2016-06-18 13:01 | disposition home or self-care (01) ==
LOC: NEPD 17:13 → NEPJ 06-18 13:01
DX: F41.8 Other specified anxiety disorders (principal); R10.30 Lower abdominal pain, unspecified; G89.29 Other chronic pain; R07.9 Chest pain, unspecified; F33.9 Major depressive disorder, recurrent, unspecified; I10 Essential (primary) hypertension; F17.210 Nicotine dependence, cigarettes, uncomplicated; Z79.82 Long term (current) use of aspirin
CPT/HCPCS: 71010; 80053; 80307; 81001; 82550; 83690; 84484; 85025; 93005; 96374; 99284; J2405; J7030